=== PATIENT | male | born 1945 | race Caucasian/White ===

== ENCOUNTER 2020-03-30 10:38 | Outpatient (REF) | payer BC, MEDICARE, SELFPAY ==
[2020-03-30 14:35] LABS: Estimated Average Glucose 111 mg/dL; Hemoglobin A1C 150.6918 umol/L; Hemoglobin A1c % 5.5 %
[2020-03-30 15:01] LABS: Creatinine Urine 98.16 mg/dL; Microalbumin Urine < 5.0 mg/L
[2020-03-30 15:11] LABS: Alanine Aminotransferase 33 U/L (0-40); Albumin Level 4.8 g/dL (3.5-5.0); Alkaline Phosphatase 92 U/L (39-117); Anion Gap 14 (12-20); Aspartate Amino Transferase 29 U/L (5-37); Bilirubin Total 0.8 mg/dL (0.0-1.0); Blood Urea Nitrogen 18 mg/dL (9-16); Calcium 8.8 mg/dL (8.4-10.2); Carbon Dioxide 30 mmol/L (22-29); Chloride 102 mmol/L (96-108); Cholesterol 269 mg/dL; Estimated Glomerular Filt Rate > 60; Glucose Fasting 119 mg/dL (60-99); HDL Cholesterol 58 mg/dL; LDL Cholesterol Calculated 184 mg/dl; Potassium 4.4 mmol/l (3.3-5.1); Sodium 142 mmol/L (135-145); Total Protein 7.1 g/dL (6.5-8.0); Triglycerides 138 mg/dL
== END 2020-03-30 10:39 | disposition home or self-care (01) ==
LOC: HO.HMGCLDS 10:38
PROVIDERS: PCP Internal Medicine; Visit Provider Internal Medicine
DX: E78.2 Mixed hyperlipidemia (principal); I10 Essential (primary) hypertension; R73.9 Hyperglycemia, unspecified
CPT/HCPCS: 80053; 80061; 82043; 83036

== ENCOUNTER 2021-01-29 11:49 | Outpatient (REF) | payer MEDICARE, SELFPAY ==
--- NOTE | ~2021-01-29 | XR_ITS ---
EXAMINATION: BILATERAL SHOULDER. CLINICAL INFORMATION: Bilateral shoulder pain. COMPARISON: None TECHNIQUE: Each shoulder 3 views FINDINGS: Right shoulder: There is no visible acute fracture, dislocation or subluxation. There is loss of right AC joint space. The glenohumeral joint space is maintained normal. No acute fracture, loose bodies or bony erosive changes. The soft tissues are normal. Left shoulder: There is no acute fracture, dislocation. The AC joint and glenohumeral joint space is maintained normal except for mild inferior glenoid spine. No visible acute fracture, dislocation or lytic process seen. 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 No visible acute fracture, dislocation or subluxation seen.
--- NOTE | ~2021-01-29 | XR_ITS ---
EXAMINATION: BILATERAL SHOULDER. CLINICAL INFORMATION: Bilateral shoulder pain. COMPARISON: None TECHNIQUE: Each shoulder 3 views FINDINGS: Right shoulder: There is no visible acute fracture, dislocation or subluxation. There is loss of right AC joint space. The glenohumeral joint space is maintained normal. No acute fracture, loose bodies or bony erosive changes. The soft tissues are normal. Left shoulder: There is no acute fracture, dislocation. The AC joint and glenohumeral joint space is maintained normal except for mild inferior glenoid spine. No visible acute fracture, dislocation or lytic process seen. 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 No visible acute fracture, dislocation or subluxation seen.
== END 2021-01-29 11:50 | disposition home or self-care (01) ==
LOC: HO.HMGCX 11:49
PROVIDERS: PCP Internal Medicine; Visit Provider Nurse Practitioner Family
DX: M25.511 Pain in right shoulder (principal); M25.512 Pain in left shoulder
CPT/HCPCS: 73030

== ENCOUNTER 2022-01-25 10:30 | Outpatient (REF) | payer MEDICARE, SELFPAY ==
[2022-01-25 11:20] LABS: MANUAL DIFF FLAG NO
[2022-01-25 12:06] LABS: Basophils Absolute Auto 0.1 X10*3/uL (0.0-0.2); Basophils Percent Auto 0.8 % (0-2); Eosinophils Absolute Auto 0.3 X10*3/uL (0.0-0.4); Eosinophils Percent Auto 3.9 % (0-4); Hematocrit 46.1 % (42.0-52.0); Hemoglobin 15.6 g/dl (14.0-18.0); Imm Gran Abs Auto 0.03 X10*3/uL (0.00-0.03); Imm Gran Pct Auto 0.4 % (0.0-0.4); Lymphocytes Absolute Auto 2.4 X10*3/uL (1.2-4.9); Mean Corpuscular HGB Conc 33.8 g/dl (31.0-36.0); Mean Corpuscular Hemoglobin 30.3 pg (27.0-33.0); Mean Corpuscular Volume 89.5 fL (80.0-98.0); Mean Platelet Volume 9.3 fL (9.4-12.4); Monocytes Absolute Auto 0.5 X10*3/uL (0.1-1.2); Monocytes Percent Auto 6.3 % (2-11); Neutrophils Absolute Auto 3.9 x10*3/uL (2.0-8.3); Neutrophils Percent Auto 54.6 % (45-73); Platelet Count 353 X10*3/uL (160-400); Red Blood Count 5.15 X10*6/uL (4.60-5.80); Red Cell Distribution Width 12.1 % (11.0-16.0); White Blood Count 7.2 X10*3/uL (4.8-10.8)
[2022-01-25 12:43] LABS: Alanine Aminotransferase 18 U/L (0-40); Albumin Level 4.9 g/dL (3.5-5.0); Alkaline Phosphatase 86 U/L (39-117); Anion Gap 16 (12-20); Aspartate Amino Transferase 23 U/L (5-37); Bilirubin Total 1.1 mg/dL (0.0-1.0); Blood Urea Nitrogen 24 mg/dL (9-16); Calcium 9.7 mg/dL (8.4-10.2); Carbon Dioxide 28 mmol/L (22-29); Chloride 100 mmol/L (96-108); Cholesterol 285 mg/dL; Estimated Glomerular Filt Rate > 60; Glucose Fasting 122 mg/dL (60-99); HDL Cholesterol 56 mg/dL; LDL Cholesterol Calculated 201 mg/dl; Potassium 4.2 mmol/L (3.3-5.1); Sodium 140 mmol/L (135-145); Total Protein 7.2 g/dL (6.5-8.0); Triglycerides 143 mg/dL
[2022-01-25 14:02] LABS: PSA,Total (Free>4and<10) 0.46 ng/mL (0.00-4.00)
== END 2022-01-25 10:31 | disposition home or self-care (01) ==
LOC: HO.HMGCLDS 10:30
PROVIDERS: PCP Internal Medicine; Visit Provider Internal Medicine
DX: Z12.5 Encounter for screening for malignant neoplasm of prostate (principal); E78.5 Hyperlipidemia, unspecified; I10 Essential (primary) hypertension; K21.9 Gastro-esophageal reflux disease without esophagitis
CPT/HCPCS: 36415; 80053; 80061; 84153; 85025

== ENCOUNTER 2022-03-30 09:28 | Outpatient (REF) | payer MEDICARE, SELFPAY ==
[2022-03-30 11:28] LABS: Cholesterol 224 mg/dL; HDL Cholesterol 58 mg/dL; LDL Cholesterol Calculated 137 mg/dl; Triglycerides 146 mg/dL
== END 2022-03-30 09:29 | disposition home or self-care (01) ==
LOC: HO.HMGCLDS 09:28
PROVIDERS: PCP Internal Medicine; Visit Provider Internal Medicine
DX: E78.5 Hyperlipidemia, unspecified (principal)
CPT/HCPCS: 36415; 80061

== ENCOUNTER 2022-04-23 11:51 | Outpatient (REF) | payer MEDICARE, SELFPAY ==
--- NOTE | ~2022-04-23 | XR_ITS ---
EXAMINATION: XR CHEST CLINICAL INFORMATION: Cough. COMPARISON: None TECHNIQUE: 2 views of the chest were obtained. FINDINGS: The lungs are well-expanded and clear of acute pneumonic process. There is bilateral apical pleural thickening. Heart size and pulmonary vascularity is normal. No gross bony abnormality seen. XR/XR chest 2V IMPRESSION: Unremarkable chest examination.
[2022-04-23 12:22] LABS: Binax Internal Control QC Valid; Binax Now Covid-19 Ag Negative (Negative)
== END 2022-04-23 11:52 | disposition home or self-care (01) ==
LOC: HO.HMGCX 11:51
PROVIDERS: PCP Internal Medicine; Visit Provider Physician Assistant Medical
DX: Z20.822 Contact with and (suspected) exposure to COVID-19 (principal); R05.9 Cough, unspecified
CPT/HCPCS: 71046; 87811; C9803

== ENCOUNTER 2022-04-23 11:52 | Outpatient (REF) | payer MEDICARE, SELFPAY ==
[2022-04-23 14:56] LABS: Influenza A PCR NEGATIVE (Negative); Influenza B PCR NEGATIVE (Negative); Resp Syncy Virus RNA Qual PCR NEGATIVE (Negative); SARS COV2 PCR INHOUSE POSITIVE (Negative)
== END 2022-04-23 11:53 | disposition home or self-care (01) ==
LOC: HO.LAB 11:52
PROVIDERS: Visit Provider Physician Assistant Medical
DX: Z20.822 Contact with and (suspected) exposure to COVID-19 (principal); R05.9 Cough, unspecified
CPT/HCPCS: 0241U

== ENCOUNTER 2022-07-25 10:47 | Outpatient (REF) | payer MEDICARE, SELFPAY ==
[2022-07-25 14:13] LABS: Alanine Aminotransferase 17 U/L (0-40); Albumin Level 4.8 g/dL (3.5-5.0); Alkaline Phosphatase 89 U/L (39-117); Anion Gap 13 (12-20); Aspartate Amino Transferase 19 U/L (5-37); Bilirubin Total 1.4 mg/dL (0.0-1.0); Blood Urea Nitrogen 16 mg/dL (9-16); Calcium 9.5 mg/dL (8.4-10.2); Carbon Dioxide 30 mmol/L (22-29); Chloride 105 mmol/L (96-108); Cholesterol 230 mg/dL; Estimated Glomerular Filt Rate > 60; Glucose Fasting 124 mg/dL (60-99); HDL Cholesterol 58 mg/dL; LDL Cholesterol Calculated 148 mg/dl; Potassium 4.6 mmol/L (3.3-5.1); Sodium 143 mmol/L (135-145); Total Protein 6.8 g/dL (6.5-8.0); Triglycerides 121 mg/dL
[2022-07-25 14:19] LABS: Estimated Average Glucose 111 mg/dL; Hemoglobin A1c % 5.5 %
== END 2022-07-25 10:48 | disposition home or self-care (01) ==
LOC: HO.HMGCLDS 10:47
PROVIDERS: PCP Internal Medicine; Visit Provider Internal Medicine
DX: I10 Essential (primary) hypertension (principal); R73.9 Hyperglycemia, unspecified; E78.5 Hyperlipidemia, unspecified
CPT/HCPCS: 36415; 80053; 80061; 83036

== ENCOUNTER 2023-01-16 10:11 | Outpatient (AMB) | payer MEDICARE, SELFPAY ==
--- NOTE | 2023-01-16 10:19 | A.OFFPC_ITS ---
Vital Signs 01/16/23 10:25 Height 5 ft 7 in Weight 133 lb BMI 20.8 BP 108/66 Blood Pressure Location Lt brachial Position Sitting Pulse 71 Pulse Source Pulse Oximeter Pulse Oximetry (%) 95 Oxygen Delivery Method Room Air Intake Visit Reasons: 6m follow up HTN Intake Note: Pt is here today for 6 months follow up visit. Allergies amoxicillin Allergy (Unknown, Verified 01/16/23 10:27) Unknown Medication List - Last Reconciled 01/16/23 by Evie Syed MD lisinopril 10 mg PO DAILY pantoprazole 40 mg PO DAILY pravastatin 40 mg PO DAILY Tobacco use date assessed: 01/16/23 Fall risk assessment: No Falls in past year Last assessed Fall Risk: 01/16/23 Dental Screening Dental Screen Date: 01/16/23 Did you have a dental visit in the last 12 months?: Yes Did you have a dental problem in the last 6 months where you did not have access to dental care?: No Was dental information given to patient?: Patient has dentist HPI 6m follow up HTN HPI Details Pt presents for f/u HTN,hyperlipid, stable on meds PFSH Medical History GERD (gastroesophageal reflux disease) HTN (hypertension) Surgical History History of esophagogastroduodenoscopy (EGD) Family History Father Prostate cancer Lung cancer Mother No problems noted. Social History Housing: House Patient Tobacco Use Status: Never used Tobacco e-Cigarette/Vaping Use: Never Used Current occupational status: retired Cognitive needs: No Hearing needs: No Vision needs: Yes Questionnaire Thrive Questionnaire Date Thrive assessed: 07/25/22 AUDIT C Alcohol Use Questionnaire (AUDIT-C) 1. How often do you have a drink containing alcohol?: Never 3. How often do you have six or more drinks on one occasion?: Never Total Score: 0 JAMES-7 AMB Questionnaire JAMES-7 Date JAMES - 7 assessed: 07/25/22 Source: Developed by Drs. Dheeraj Hurley, Rasheeda Shailesh Owen and colleagues, with an educational chelly from [employer]. Review of Systems Const All systems reviewed & are unremarkable except as noted in HPI and below Reports no additional complaints Eyes Reports no additional complaints ENT Reports no additional complaints Card Reports no additional complaints Resp Reports no additional complaints GI Reports no additional complaints Reports no additional complaints Physical exam (Primary Care) Vital Signs: Last Vital Signs Pulse 71 01/16/23 10:25 BP 108/66 01/16/23 10:25 Pulse Ox 95 01/16/23 10:25 Oxygen Delivery Method Room Air 01/16/23 10:25 BMI result Body Mass Index 20.8 Tobacco/Smoking Status: Tobacco use Status Tobacco use date assessed 01/16/23 01/16/23 10:29 Patient Tobacco Use Status Never used Tobacco 01/16/23 10:20 e-Cigarette/Vaping Use Never Used 01/16/23 10:20 Thrive Assessment: Date of Thrive Assessment Date Thrive assessed 07/25/22 01/16/23 10:20 Const General: no acute distress HENMT Face and sinus: Yes normal facial exam Resp Effort & Inspection: normal respiratory effort Auscultation: clear to auscultation bilaterally Cardio Rhythm: regular rhythm Heart sounds: S1 normal heart sound present and S2 normal heart sound present Assessment and Plan Assessment & Plan (1) Hyperglycemia: Code(s): R73.9 - Hyperglycemia, unspecified Plan: ADA diet, exercise, check A1C today and in 6 months (2) GERD (gastroesophageal reflux disease): Code(s): K21.9 - Gastro-esophageal reflux disease without esophagitis Plan: cont PPI (3) HTN (hypertension): Comment: <130/80 Code(s): I10 - Essential (primary) hypertension Plan: cont med (4) Hyperlipemia: Code(s): E78.5 - Hyperlipidemia, unspecified Plan: cont statin Orders: Orders Hemoglobin A1c 6 Months E78.5 - Hyperlipidemia, unspecified, I10 - Essential (primary) hypertension, N40.0 - Benign prostatic hyperplasia without lower urinary tract symptoms, R73.9 - Hyperglycemia, unspecified Lipid Panel 6 Months E78.5 - Hyperlipidemia, unspecified, I10 - Essential (primary) hypertension, N40.0 - Benign prostatic hyperplasia without lower ur inary tract symptoms, R73.9 - Hyperglycemia, unspecified PSA,Total (Free>4and<10) Today E78.5 - Hyperlipidemia, unspecified, I10 - Essential (primary) hypertension, N40.0 - Benign prostatic hyperplasia without lower urinary tract symptoms, R73.9 - Hyperglycemia, unspecified Comprehensive [place]. Panel Fast Today E78.5 - Hyperlipidemia, unspecified, I10 - Essential (primary) hypertension, K21.9 - Gastro-esophageal reflux disease without esophagitis, R73.9 - Hyperglycemia, unspecified Complete Blood Count Auto Diff Today E78.5 - Hyperlipidemia, unspecified, I10 - Essential (primary) hypertension, K21.9 - Gastro-esophageal reflux disease without esophagitis, R73.9 - Hyperglycemia, unspecified Lipid Panel Today E78.5 - Hyperlipidemia, unspecified, I10 - Essential (primary) hypertension, K21.9 - Gastro-esophageal reflux disease without esophagitis, R73.9 - Hyperglycemia, unspecified Hemoglobin A1c Today E78.5 - Hyperlipidemia, unspecified, I10 - Essential (primary) hypertension, K21.9 - Gastro-esophageal reflux disease without esophagitis, R73.9 - Hyperglycemia, unspecified Comprehensive [place]. Panel Fast 6 Months E78.5 - Hyperlipidemia, unspecified, I10 - Essential (primary) hypertension, N40.0 - Benign prostatic hyperplasia without lower urinary tract symptoms, R73.9 - Hyperglycemia, unspecified Referrals Cologuard Test Z12.11 - Encounter for screening for malignant neoplasm of colon, Z12.12 - Encounter for screening for malignant neoplasm of rectum Medications: Refilled pravastatin 40 mg PO DAILY 90 tabs 3RF lisinopril 10 mg PO DAILY 90 tabs 3RF pantoprazole 40 mg PO DAILY 90 tabs 3RF Coding Level of Care Code Est Pt Level 4 (13570) Diagnoses Hyperglycemia R73.9 GERD (gastroesophageal reflux disease) K21.9 HTN (hypertension) I10 Hyperlipemia E78.5
[2023-01-16 10:25] VITALS: BP 108/66; PULSE 71; O2SAT 95; BMI 20.8
== END 2023-01-16 11:10 | disposition home or self-care (01) ==
PROVIDERS: Visit Provider Internal Medicine
DX: R73.9 Hyperglycemia, unspecified (principal); K21.9 Gastro-esophageal reflux disease without esophagitis; I10 Essential (primary) hypertension; E78.5 Hyperlipidemia, unspecified
CPT/HCPCS: 99214

== ENCOUNTER 2023-01-16 11:05 | Outpatient (REF) | payer MEDICARE, SELFPAY ==
[2023-01-16 13:25] LABS: MANUAL DIFF FLAG NO
[2023-01-16 13:42] LABS: Basophils Absolute Auto 0.1 X10*3/uL (0.0-0.2); Basophils Percent Auto 0.9 % (0-2); Eosinophils Absolute Auto 0.1 X10*3/uL (0.0-0.4); Eosinophils Percent Auto 2.4 % (0-4); Hematocrit 46.3 % (42.0-52.0); Hemoglobin 15.6 g/dl (14.0-18.0); Imm Gran Abs Auto 0.02 X10*3/uL (0.00-0.03); Imm Gran Pct Auto 0.4 % (0.0-0.4); Lymphocytes Absolute Auto 1.5 X10*3/uL (1.2-4.9); Lymphocytes Percent Auto 27.6 % (20-40); Mean Corpuscular HGB Conc 33.7 g/dl (31.0-36.0); Mean Corpuscular Hemoglobin 30.6 pg (27.0-33.0); Mean Corpuscular Volume 90.8 fL (80.0-98.0); Mean Platelet Volume 9.4 fL (9.4-12.4); Monocytes Absolute Auto 0.3 X10*3/uL (0.1-1.2); Monocytes Percent Auto 6.3 % (2-11); Neutrophils Absolute Auto 3.4 x10*3/uL (2.0-8.3); Neutrophils Percent Auto 62.4 % (45-73); Platelet Count 290 X10*3/uL (160-400); White Blood Count 5.4 X10*3/uL (4.8-10.8)
[2023-01-16 14:02] LABS: Estimated Average Glucose 111 mg/dL; Hemoglobin A1c % 5.5 % (<6.0)
[2023-01-16 14:13] LABS: PSA,Total (Free>4and<10) 0.52 ng/mL (0.00-4.00)
[2023-01-16 14:27] LABS: Alanine Aminotransferase 17 U/L (0-40); Albumin Level 4.7 g/dL (3.5-5.0); Alkaline Phosphatase 79 U/L (39-117); Anion Gap 13 (12-20); Aspartate Amino Transferase 20 U/L (5-37); Bilirubin Total 0.9 mg/dL (0.0-1.0); Blood Urea Nitrogen 18 mg/dL (9-16); Calcium 9.9 mg/dL (8.4-10.2); Carbon Dioxide 29 mmol/L (22-29); Chloride 104 mmol/L (96-108); Cholesterol 205 mg/dL (<200); Estimated Glomerular Filt Rate > 60; Glucose Fasting 119 mg/dL (60-99); HDL Cholesterol 57 mg/dL (>40); LDL Cholesterol Calculated 126 mg/dL (<100); Potassium 4.4 mmol/L (3.3-5.1); Sodium 142 mmol/L (135-145); Triglycerides 114 mg/dL (<150)
== END 2023-01-16 11:06 | disposition home or self-care (01) ==
LOC: HO.HMGCLDS 11:05
PROVIDERS: PCP Internal Medicine; Visit Provider Internal Medicine
DX: Z12.5 Encounter for screening for malignant neoplasm of prostate (principal); R73.9 Hyperglycemia, unspecified; K21.9 Gastro-esophageal reflux disease without esophagitis; E78.5 Hyperlipidemia, unspecified; N40.0 Benign prostatic hyperplasia without lower urinary tract symptoms; I10 Essential (primary) hypertension
CPT/HCPCS: 36415; 80053; 80061; 83036; 84153; 85025

== ENCOUNTER 2023-04-26 10:05 | Outpatient (AMB) | payer MEDICARE, SELFPAY ==
[2023-04-26 11:20] VITALS: BP 124/70; PULSE 96; TEMP 36.6; O2SAT 98; BMI 21.8
--- NOTE | 2023-04-26 11:20 | MHC.OFFWIV ---
Intake Vital Signs 04/26/23 11:20 Height 5 ft 7 in Weight 139 lb BMI 21.8 BP 124/70 Blood Pressure Location Lt brachial Position Sitting Pulse 96 Pulse Source Pulse Oximeter Temp 97.8 F Temp Source Temporal Artery Scan Pulse Oximetry (%) 98 Oxygen Delivery Method Room Air Intake Visit Reasons: EP, cough, congestion, sore throat (masked) Intake Note: pt is here today for cough congestion sore throat started 2 weeks Patient Tobacco Use Status: Never used Tobacco Allergies amoxicillin Allergy (Unknown, Verified 04/26/23 11:28) Unknown Do you need a note to return to daycare/school/sports/work: No HPI HPI Comments History of Present Illness Details Austin schwartz a 78yo M who presents to office with cold He said symptoms x 2 weeks R ear pain, R eye crusting in am, sinus pressure and cough No relief with OTC medicine No fever or chills Denies CP or SOB States only cough medicine which helps is the one with codieine; last script april 2022 [facility] Medical History GERD (gastroesophageal reflux disease) HTN (hypertension) Surgical History History of esophagogastroduodenoscopy (EGD) Family History Father Prostate cancer Lung cancer Mother No problems noted. Social History Housing: House Patient Tobacco Use Status: Never used Tobacco e-Cigarette/Vaping Use: Never Used Current occupational status: retired Cognitive needs: No Hearing needs: No Vision needs: Yes Review of Systems Const Denies body aches, Denies chills, Reports fatigue, Denies fever(s) and Reports headache(s) Eyes Denies blurry vision ENT Reports otalgia, Reports headache(s), Reports nasal congestion, Reports nasal discharge, Reports sinus pain, Reports sinus pressure, Denies sore throat and Denies throat swelling Card Denies chest pain and Denies dyspnea Resp Reports chest congestion, Reports cough and Denies dyspnea GI Denies abdominal pain Neuro Reports headache(s) Endo Reports fatigue Aller/Immun Denies throat swelling Physical Exam Vital Signs: Last Vital Signs Temp 97.8 F 04/26/23 11:20 Pulse 96 04/26/23 11:20 BP 124/70 04/26/23 11:20 Pulse Ox 98 04/26/23 11:20 Oxygen Delivery Method Room Air 04/26/23 11:20 BMI result Body Mass Index 21.8 General: Non-toxic, NAD. Speaking full sentences. Skin: Warm dry throughout Eye: EOMI, PERRL. + conjunctival erythema bilaterally. No drainage or crusting bilaterally. No FB under eyelid R side. No periorbital edema or erythema HENT: Airway patent. Uvula midline. No pharyngeal erythema or edema. No GRADUATE ASSISTANT. Bilateral canals clear. R TM + erythema without bulging or perforation. L TM non-erythematous, non-bulging. No TM perforation or hemotympanum noted. + sinus tenderness maxillary region. Respiratory: CTA bilaterally. No wheezes, rales or rhonchi Cardiac: RRR. No murmur MSK: Full ROM extremities. Neurology: A/O. No aphasia or facial droop. Gait without abnormality Psych: Good mood and affect Results AMB Rapid Strep AMB Rapid Strep Negative Last Edit by Kelin Rendon CMA on 04/26/23 11:37 Assessment & Plan Assessment & Plan (1) Cough: Code(s): R05.9 - Cough, unspecified Qualifiers: Cough type: acute Qualified Code(s): R05.1 - Acute cough Plan: see below (2) Sinusitis: Code(s): J32.9 - Chronic sinusitis, unspecified Qualifiers: Sinusitis location: maxillary Chronicity: acute Recurrence: non-recurrent Qualified Code(s): J01.00 - Acute maxillary sinusitis, unspecified Plan: Patient seen and evaluated. Non-toxic appearing Lungs CTA Sinus x 2 weeks Strep negative Doxy to pharmacy to take with food Cough medicine; + lethargy, no alcohol or driving F/U with PCP Patient gave verbal understanding and had no additional questions or concerns at time of discharge All questions answered Orders: Orders AMB Rapid Strep Screen Today Z13.9 - Encounter for screening, unspecified Medications: New doxycycline hyclate 100 mg PO BID 14 caps 0RF codeine-guaifenesin 10-100 mg/5 mL 5 mL PO Q6H PRN 118 mL 0RF cough R05.9 - Cough, unspecified Coding Level of Care Code Est Pt Level 3 (63973) Diagnoses Acute cough R05.1 Cough type: acute Acute non-recurrent maxillary sinusitis J01.00 Sinusitis location: maxillary Chronicity: acute Recurrence: non-recurrent
== END 2023-04-26 11:55 | disposition home or self-care (01) ==
PROVIDERS: PCP Internal Medicine; Visit Provider Physician Assistant
DX: R05.1 Acute cough (principal); J01.00 Acute maxillary sinusitis, unspecified; J02.9 Acute pharyngitis, unspecified
CPT/HCPCS: 87880; 99213

== ENCOUNTER 2023-07-25 10:05 | Outpatient (REF) | payer MEDICARE, SELFPAY ==
[2023-07-25 13:49] LABS: Estimated Average Glucose 114 mg/dL; Hemoglobin A1c % 5.6 % (<6.0)
[2023-07-25 14:04] LABS: Alanine Aminotransferase 19 U/L (0-40); Albumin Level 4.3 g/dL (3.5-5.0); Alkaline Phosphatase 81 U/L (39-117); Anion Gap 12 (12-20); Aspartate Amino Transferase 22 U/L (5-37); Blood Urea Nitrogen 14 mg/dL (9-16); Calcium 9.1 mg/dL (8.4-10.2); Carbon Dioxide 27 mmol/L (22-29); Chloride 108 mmol/L (96-108); Cholesterol 202 mg/dL (<200); Estimated Glomerular Filt Rate > 60; Glucose Fasting 118 mg/dL (60-99); HDL Cholesterol 56 mg/dL (>40); LDL Cholesterol Calculated 126 mg/dL (<100); Sodium 143 mmol/L (135-145); Total Protein 6.7 g/dL (6.5-8.0); Triglycerides 101 mg/dL (<150)
== END 2023-07-25 10:06 | disposition home or self-care (01) ==
LOC: HO.HMGCLDS 10:05
PROVIDERS: PCP Internal Medicine; Visit Provider Internal Medicine
DX: R73.9 Hyperglycemia, unspecified (principal); I10 Essential (primary) hypertension; E78.5 Hyperlipidemia, unspecified; N40.0 Benign prostatic hyperplasia without lower urinary tract symptoms
CPT/HCPCS: 36415; 80053; 80061; 83036

== ENCOUNTER 2023-07-28 11:35 | Outpatient (AMB) | payer MEDICARE, SELFPAY ==
[2023-07-28 11:39] VITALS: BP 128/66; PULSE 81; O2SAT 96; BMI 21.0
--- NOTE | 2023-07-28 11:39 | A.OFFPC_ITS ---
Vital Signs 07/28/23 11:39 Height 5 ft 7 in Weight 134 lb BMI 21.0 BP 128/66 Blood Pressure Location Rt brachial Position Sitting Pulse 81 Pulse Source Pulse Oximeter Pulse Oximetry (%) 96 Oxygen Delivery Method Room Air Intake Visit Reasons: Annual PE Intake Note: Pt is here today for PE. Allergies amoxicillin Allergy (Unknown, Verified 07/28/23 11:40) Unknown Medication List - Last Reconciled 07/28/23 by Evie Syed MD lisinopril 10 mg PO DAILY pantoprazole 40 mg PO DAILY pravastatin 40 mg PO DAILY Tobacco use date assessed: 07/28/23 Fall risk assessment: No Falls in past year Last assessed Fall Risk: 07/28/23 Dental Screening Dental Screen Date: 07/28/23 Did you have a dental visit in the last 12 months?: Yes Did you have a dental problem in the last 6 months where you did not have access to dental care?: No Was dental information given to patient?: Patient has dentist HPI Annual PE HPI Details Pt presents for PE. [facility] Medical History GERD (gastroesophageal reflux disease) HTN (hypertension) Surgical History History of esophagogastroduodenoscopy (EGD) Family History Father Prostate cancer Lung cancer Mother No problems noted. Social History Housing: House Patient Tobacco Use Status: Never used Tobacco e-Cigarette/Vaping Use: Never Used service: Yes Current occupational status: retired Cognitive needs: No Hearing needs: No Vision needs: Yes Questionnaire PHQ-9 Over the last 2 weeks, how often have you been bothered by any of the following problems? 1. Little interest or pleasure in doing things: not at all 2. Feeling down, depressed, or hopeless: several days 3. Trouble falling or staying asleep, or sleeping too much: not at all 4. Feeling tired or having little energy: several days 5. Poor appetite or overeating: not at all 6. Feeling bad about yourself - or that you are a failure or have let yourself or your family down: not at all 7. Trouble concentrating on things, such as reading the newspaper or watching television: not at all 8. Moving or speaking so slowly that other people could have noticed. Or the opposite - being so fidgety or restless that you have been moving around a lot more than usual: not at all 9. Thoughts that you would be better off or of hurting yourself in some way: not at all Total score: 2 Depression Screening Interpretation: Negative Depression Screening Done: Yes Source: Developed by Drs. Dheeraj Hurley, Rasheeda Sosa, Shailesh Puentes and colleagues, with an educational chelly from [employer]. Thrive Questionnaire Date Thrive assessed: 07/28/23 I am a: Patient What is your living situation today?: I have a steady place to live Within the past 12 months, did the food you bought not last and you didn't have the money to get more?: Never true Within the past 12 months, did you worry whether your food would run out before you got money to buy more?: Never true Do you have trouble paying for medicines?: No Do you have trouble getting transportation to medical appointments?: No Do you have trouble paying your heating and electricity bill?: No Do you have trouble taking care of your child, family member or friend?: No Do you have trouble with day-to-day activities such as bathing, preparing meals, shopping, managing finances, etc.?: No Are you currently unemployed and looking for a job?: No Are you interested in more education?: No THRIVE Score: 0 AUDIT C Alcohol Use Questionnaire (AUDIT-C) 1. How often do you have a drink containing alcohol?: Never 3. How often do you have six or more drinks on one occasion?: Never Total Score: 0 JAMES-7 AMB Questionnaire JAMES-7 Date JAMES - 7 assessed: 07/25/22 Feeling nervous, anxious, or on edge: 0 = Not at all Not being able to stop or control worryin = Not at all Worrying too much about different things: 0 = Not at all Trouble relaxin = Not at all Being so restless that it is hard to sit still: 0 = Not at all Becoming easily annoyed or irritable: 0 = Not at all Feeling afraid as if something awful might happen: 0 = Not at all Total JAMES-7 score (0-4 normal; 5-9 mild; 10-14 moderate; 15-21 severe): 0 Source: Developed by Drs. Dheeraj Hurley, Rasheeda Sosa, Shailesh Puentes and colleagues, with an educational chelly from [employer]. Review of Systems Const All systems reviewed & are unremarkable except as noted in HPI and below Reports no additional complaints Eyes Reports no additional complaints ENT Reports no additional complaints Card Reports no additional complaints Resp Reports no additional complaints GI Reports no additional complaints Reports no additional complaints Musc Reports no additional complaints Physical exam (Primary Care) Vital Signs: Last Vital Signs Pulse 81 07/28/23 11:39 BP 128/66 07/28/23 11:39 Pulse Ox 96 07/28/23 11:39 Oxygen Delivery Method Room Air 07/28/23 11:39 BMI result Body Mass Index 21.0 Tobacco/Smoking Status: Tobacco use Status Tobacco use date assessed 07/28/23 07/28/23 11:44 Patient Tobacco Use Status Never used Tobacco 07/28/23 11:44 e-Cigarette/Vaping Use Never Used 07/28/23 11:44 PHQ-9: PHQ-9 Score PHQ-9: Total score 2 07/28/23 11:44 Depression Screening Interpretation: Negative Thrive Assessment: Date of Thrive Assessment Date Thrive assessed 07/28/23 07/28/23 11:44 Const General: no acute distress HENMT Head: Yes normal to inspection Ears: hearing grossly normal bilaterally Face and sinus: Yes normal facial exam Throat: Yes posterior oropharynx normal Eyes General: appearance normal, both eyes and all related structures Neck Neck: Yes supple Resp Effort & Inspection: normal respiratory effort Auscultation: clear to auscultation bilaterally Cardio Rhythm: regular rhythm Heart sounds: S1 normal heart sound present and S2 normal heart sound present GI Inspection: Yes normal to inspection Palpation (GI): Soft to palpation Percussion: Yes normal to percussion Auscultation: normal bowel sounds Assessment and Plan Assessment & Plan (1) Annual physical exam: Code(s): Z00.00 - Encounter for general adult medical examination without abnormal findings Plan: Well-balanced diet regular physical activity discussed with the patient. (2) HTN (hypertension): Comment: <130/80 Code(s): I10 - Essential (primary) hypertension Plan: Continue lisinopril (3) Hyperlipemia: Code(s): E78.5 - Hyperlipidemia, unspecified Plan: Continue statin, return in 1 year for physical with a fasting labs before Orders: Orders Lipid Panel 1 Year E78.5 - Hyperlipidemia, unspecified, I10 - Essential (primary) hypertension, Z00.00 - Encounter for general adult medical examination without abnormal findings UA w Microscopic 1 Year E78.5 - Hyperlipidemia, unspecified, I10 - Essential (primary) hypertension, Z00.00 - Encounter for general adult medical examination without abnormal findings Comprehensive [place]. Panel Fast 1 Year E78.5 - Hyperlipidemia, unspecified, I10 - Essential (primary) hypertension, Z00.00 - Encounter for general adult medical examination without abnormal findings Complete Blood Count Auto Diff 1 Year E78.5 - Hyperlipidemia, unspecified, I10 - Essential (primary) hypertension, Z00.00 - Encounter for general adult medical examination without abnormal findings PSA,Total (Free>4and<10) 1 Year E78.5 - Hyperlipidemia, unspecified, I10 - Essential (primary) hypertension, Z00.00 - Encounter for general adult medical examination without abnormal findings Hemoglobin A1c 1 Year E78.5 - Hyperlipidemia, unspecified, I10 - Essential (primary) hypertension, Z00.00 - Encounter for general adult medical examination without abnormal findings Coding Level of Care Code Est Pt Prev Care >65y(03688) Diagnoses Annual physical exam Z00.00 HTN (hypertension) I10 Hyperlipemia E78.5
== END 2023-07-28 13:13 | disposition home or self-care (01) ==
PROVIDERS: PCP Internal Medicine; Visit Provider Internal Medicine
DX: Z00.00 Encounter for general adult medical examination without abnormal findings (principal); I10 Essential (primary) hypertension; E78.5 Hyperlipidemia, unspecified
CPT/HCPCS: 99397

== ENCOUNTER 2024-08-08 09:59 | Outpatient (REF) | payer MEDICARE, SELFPAY ==
--- OUTSIDE RECORDS SUMMARY | 2024-08-08 11:22 | XMS_ITS | Clinical Summary ---
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 8 Active aspirin 81 mg EC tablet Take 81 mg by mouth daily. Active omeprazole OTC (PriLOSEC OTC) 20 mg EC tablet Take 1 Tab by mouth daily. 6 Active Active Problems Problem Noted Date Diagnosed Date Prediabetes 08/29/2017 Hypertension 08/22/2017 Hyperlipidemia 09/05/2015 Gastroesophageal reflux disease without esophagi tis 09/05/2015 Family History Medical History Relation Name Comments Lung cancer Father 92 Other cancer Sister 1 lung and throat cancer 65-smoker Relation Name Status Comments Father 92 Mother 90 Sister 1 Sister 2 Social History Tobacco Use Types Packs/Day Years Used Date Smoking Tobacco: Never Smokeless Tobacco: Never Alcohol Use Standard Drinks/Week Comments Not Asked 0 (1 standard drink = 0.6 oz pur e alcohol) Sex and Gender Information Value Date Recorded Sex Assigned at Not on file Legal Sex Male 5:36 PM EST Gender Identity Not on file Sexual Orientation Not on file Obstetrics History Plan of Treatment Health Maintenance Due Date Last Done Comments DTaP,Tdap,and Td Vaccines (1 - Tdap) 1966 Pneumococcal Vaccine: 50+ Ye ars (1 of 1 - PCV) 1997 Zoster Vaccines (1 of 2) 1997 RSV Immunization Adult Patie nts (1 - 1-dose 75+ series) 2022 COVID-19 Vaccine (2023-2 5 season) 2023 Cholesterol Screening (Lipid Panel) 04/06/2024 10/29/2018 Colorectal Cancer Screening: Stool Based Tests (FOBT/FIT) 04/06/2024 Depression Screening 04/06/2024 Falls Risk Assessment 04/06/2024 Hypertension/CHF/CAD Annual BMP Blood Test 04/06/2024 10/29/2018 Social Influencers of Health Screening 04/06/2024 Influenza Vaccine (Season Ended) 2024 Hepatitis C Screening Completed 10/29/2018 HIB Vaccines Aged Out No longer eligi ble based on patient's age to complete this topic HPV Vaccines Aged Out No longer eligi ble based on patient's age to complete this topic Hepatitis A Vaccines Aged Out No long er eligible based on patient's age to complete this topic Hepatitis B Vaccines Aged Out No long er eligible based on patient's age to complete this topic IPV Vaccines Aged Out No longer eligi ble based on patient's age to complete this topic MMR Vaccines Aged Out No longer eligi ble based on patient's age to complete this topic Meningococcal ACWY Vaccine Aged Out N o longer eligible based on patient's age to complete this topic Meningococcal B Vaccine Aged Out No l onger eligible based on patient's age to complete this topic RSV Immunization Patients Un shawn 20 months Aged Out No longer eligible b ased on patient's age to complete this topic Varicella Vaccines Aged Out No longer eligible based on patient's age to complete this topic Procedures Procedure Name Priority Date/Time Associated Diagnosis Comments HEPATITIS C SCREENING Routine 10/29/2018 ANNUAL BMP BLOOD TEST Routine 10/29/2018 LIPID PANEL Routine 10/29/2018 from Last 3 Months or Most Recently Relevant to Health Maintenance Results * Annual BMP Blood Test (10/29/2018) Annual BMP Blood Test Abstracted Historical Provider MD HEALTH MAINTENANCE Final Result * Hepatitis C Screening (10/29/2018) Hepatitis C Screening Abstracted Historical Provider HEALTH MAINTENANCE Final Result * (ABNORMAL) Lipid panel (10/29/2018) LDL/HDL Ratio 4 0 - 4 Triglycerides 180(A) 0 - 150 mg/dL Cholesterol 233(A) 0 - 200 mg/dL HDL 53 >=40 mg/dL LDL Cholesterol 144(A) 0 - 100 mg/dL Blood Venous blood specimen / Unknown Historical Provider LAB BLOOD ORDERABLES Lilian l Result from Last 3 Months or Most Recently Relevant to Health Maintenance 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
--- OUTSIDE RECORDS SUMMARY | 2024-08-08 11:22 | XMS_ITS | Clinical Summary ---
Author Organization [facility] Address [address] [place] [address] Care Team Providers Care White Work Cleaner Name Role Phone Tanesha Brown MD Primary Care Provider [phone] Allergies No known active allergies Medications Medication Sig Dispensed Refills Start Date End Date Status lisinopril (PRINIVIL,ZESTRIL) tablet 10 mg Take 10 mg by mouth daily. 0 Active Active Problems No known active problems Family History Medical History Relation Name Comments Cancer Father Oni Cancer Sister Beth Relation Name Status Comments Father Oni Sister Beth Social History Tobacco Use Types Packs/Day Years Used Date Smoking Tobacco: Never Smokeless Tobacco: Never Alcohol Use Standard Drinks/Week Comments No 0 (1 standard drink = 0.6 oz pur e alcohol) Sex and Gender Information Value Date Recorded Sex Assigned at Not on file Gender Identity Not on file Sexual Orientation Not on file Last Filed Vital Signs Vital Sign Reading Time Taken Comments Blood Pressure 140/74 01/19/2018 10:09 AM EDT Pulse 92 01/19/2018 10:09 AM EDT Temperature 36.9 ??C (98.5 ??F) 01/19/2018 10:09 AM E DT Respiratory Rate - - Oxygen Saturation - - Inhaled Oxygen Concentration - - Weight 60.1 kg (132 lb 9.6 oz) 01/19/2018 10:09 AM EDT Height 170.2 cm (5' 7 ) 01/19/2018 10:09 AM EDT Body Mass Index 20.77 01/19/2018 10:09 AM EDT Plan of Treatment Health Maintenance Due Date Last Done Comments Hepatitis C Screening 1945 COVID-19 Vaccine (#1) 1945 Depression Screening 1959 Preventative Health Evaluation 1965 DTap / Tdap / Td (1 - Tdap) 1966 Shingrix-Zoster Vaccine (1 of 2) 1997 Fall Risk Assessment 02/11/2012 Pneumococcal Vaccine (1 of 1 - PCV) 02/11/2012 RSV Adult > 60+ Yrs or Pregn ant (1 - 1-dose 75+ series) 2022 Influenza Vaccine (#1) 2023 Hepatitis B Vaccines Aged Out No long er eligible based on patient's age to complete this topic RSV Ped < 20 months Aged Out No longe r eligible based on patient's age to complete this topic Care Teams White Work Cleaner Relationship Specialty Start Date End Date Tanesha Brown MD PCP - General Internal Medicine 11/21/17
[2024-08-08 13:05] LABS: MANUAL DIFF FLAG NO
[2024-08-08 13:15] LABS: Appearance Urine Turbid; Color Urine Yellow; Glucose Urine UA Negative (Negative); Leukocyte Esterase Urine Trace (Negative); Nitrite Urine Negative (Negative); UMIC TRIGGER UA YES; Urine Blood Negative (Negative); Urine Ketones Negative (Negative); Urine Protein Negative (Neg-Trace)
[2024-08-08 13:18] LABS: Basophils Absolute Auto 0.1 X10*3/uL (0.0-0.2); Basophils Percent Auto 0.7 % (0-2); Eosinophils Absolute Auto 0.2 X10*3/uL (0.0-0.4); Eosinophils Percent Auto 3.2 % (0-4); Hematocrit 45.3 % (42.0-52.0); Hemoglobin 15.2 g/dl (14.0-18.0); Imm Gran Abs Auto 0.02 X10*3/uL (0.00-0.03); Imm Gran Pct Auto 0.3 % (0.0-0.4); Lymphocytes Absolute Auto 2.1 X10*3/uL (1.2-4.9); Lymphocytes Percent Auto 29.5 % (20-40); Mean Corpuscular HGB Conc 33.6 g/dl (31.0-36.0); Mean Corpuscular Hemoglobin 30.5 pg (27.0-33.0); Mean Corpuscular Volume 90.8 fL (80.0-98.0); Mean Platelet Volume 9.5 fL (9.4-12.4); Monocytes Absolute Auto 0.4 X10*3/uL (0.1-1.2); Monocytes Percent Auto 5.2 % (2-11); Neutrophils Absolute Auto 4.3 x10*3/uL (2.0-8.3); Neutrophils Percent Auto 61.1 % (45-73); Platelet Count 299 X10*3/uL (160-400); Red Blood Count 4.99 X10*6/uL (4.60-5.80); Red Cell Distribution Width 12.6 % (11.0-16.0)
[2024-08-08 13:23] LABS: Estimated Average Glucose 117 mg/dL; Hemoglobin A1C 153.9866 umol/L; Hemoglobin A1c % 5.7 % (<6.0); Total Hemoglobin (HGBA1C) 4013.3634 umol/L
[2024-08-08 13:24] LABS: Bacteria Urine None Seen (None Seen); Hyaline Casts Urine 0-2 /LPF (0-2); RBC Urine 0-2 /HPF (0-2); Squamous Epithelial Cell Urine 0-2 /HPF (0-2); WBC Urine 0-5 /HPF (0-5)
[2024-08-08 13:33] LABS: Alanine Aminotransferase 22 U/L (0-40); Albumin Level 4.4 g/dL (3.5-5.0); Alkaline Phosphatase 81 U/L (39-117); Anion Gap 11 (12-20); Aspartate Amino Transferase 29 U/L (5-37); Bilirubin Total 1.2 mg/dL (0.0-1.0); Blood Urea Nitrogen 17 mg/dL (9-16); Calcium 9.3 mg/dL (8.4-10.2); Carbon Dioxide 28 mmol/L (22-29); Chloride 105 mmol/L (96-108); Cholesterol 201 mg/dL (<200); Estimated Glomerular Filt Rate > 60; Glucose Fasting 119 mg/dL (60-99); HDL Cholesterol 61 mg/dL (>40); LDL Cholesterol Calculated 121 mg/dL (<100); Potassium 3.9 mmol/L (3.3-5.1); Sodium 140 mmol/L (135-145); Total Protein 6.6 g/dL (6.5-8.0); Triglycerides 97 mg/dL (<150)
[2024-08-08 13:48] LABS: PSA,Total (Free>4and<10) 0.51 ng/mL (0.00-4.00)
== END 2024-08-08 10:00 | disposition home or self-care (01) ==
LOC: HO.HMGCLDS 09:59
PROVIDERS: PCP Internal Medicine; Visit Provider Internal Medicine
DX: Z00.00 Encounter for general adult medical examination without abnormal findings (principal); I10 Essential (primary) hypertension; E78.5 Hyperlipidemia, unspecified; Z12.5 Encounter for screening for malignant neoplasm of prostate; Z13.1 Encounter for screening for diabetes mellitus
CPT/HCPCS: 36415; 80053; 80061; 81001; 83036; 84153; 85025

== ENCOUNTER 2024-08-13 11:53 | Outpatient (AMB) | payer MEDICARE, SELFPAY ==
[2024-08-13 11:55] VITALS: BP 126/76; PULSE 68; RESP 18; TEMP 36.6; O2SAT 98; BMI 21.0
--- NOTE | 2024-08-13 11:55 | A.OFFPC_ITS ---
Vital Signs 08/13/24 11:55 Height 5 ft 7 in Weight 134 lb BMI 21.0 BP 126/76 Blood Pressure Location Lt brachial Position Sitting Respiration 18 Pulse 68 Pulse Source Pulse Oximeter Temp 97.9 F Temp Source Oral Pulse Oximetry (%) 98 Oxygen Delivery Method Room Air Intake Visit Reasons: Annual PE (>40) - see comments Intake Note: Pt is here today for PE. Allergies amoxicillin Allergy (Unknown, Verified 08/13/24 11:56) Unknown Medication List - Last Reconciled 08/13/24 by Evie Syed MD lisinopril 10 mg PO DAILY pantoprazole 40 mg PO DAILY pravastatin 40 mg PO DAILY Tobacco use date assessed: 08/13/24 Fall risk assessment: No Falls in past year Last assessed Fall Risk: 08/13/24 Dental Screening Dental Screen Date: 08/13/24 Did you have a dental visit in the last 12 months?: Yes Did you have a dental problem in the last 6 months where you did not have access to dental care?: No Was dental information given to patient?: Patient has dentist HPI Annual PE (>40) - see comments HPI Details Pt presents for PE. Patient complains of chronic lower back pain and stiffness for many years. He was evaluated by neurosurgeon and had chiropractor treatment with only temporary relief. he denies pain radiating to lower extremities, weakness or numbness in extremities, change in bowel bladder function. He reports feeling better after walking and doing some yard work [facility] Medical History GERD (gastroesophageal reflux disease) HTN (hypertension) Surgical History History of esophagogastroduodenoscopy (EGD) Family History Father Prostate cancer Lung cancer Mother No problems noted. Social History Housing: House Patient Tobacco Use Status: Never used Tobacco e-Cigarette/Vaping Use: Never Used service: Yes Current occupational status: retired Cognitive needs: No Hearing needs: No Vision needs: Yes Questionnaire PHQ-9 Over the last 2 weeks, how often have you been bothered by any of the following problems? 1. Little interest or pleasure in doing things: not at all 2. Feeling down, depressed, or hopeless: several days 3. Trouble falling or staying asleep, or sleeping too much: not at all 4. Feeling tired or having little energy: several days 5. Poor appetite or overeating: not at all 6. Feeling bad about yourself - or that you are a failure or have let yourself or your family down: not at all 7. Trouble concentrating on things, such as reading the newspaper or watching television: not at all 8. Moving or speaking so slowly that other people could have noticed. Or the opposite - being so fidgety or restless that you have been moving around a lot more than usual: not at all 9. Thoughts that you would be better off or of hurting yourself in some way: not at all Total score: 2 Depression Screening Interpretation: Negative Depression Screening Done: Yes 61455 - PHQ-9 Billing: Yes Source: Developed by Drs. Dheeraj Hurley, Raseheda Sosa, Shailesh Puentes and colleagues, with an educational chelly from [employer]. Thrive Questionnaire Date Thrive assessed: 08/13/24 I am a: Patient What is your living situation today?: I have a steady place to live Within the past 12 months, did the food you bought not last and you didn't have the money to get more?: Never true Within the past 12 months, did you worry whether your food would run out before you got money to buy more?: Never true Do you have trouble paying for medicines?: No Do you have trouble getting transportation to medical appointments?: No Do you have trouble paying your heating and electricity bill?: No Do you have trouble taking care of your child, family member or friend?: No Do you have trouble with day-to-day activities such as bathing, preparing meals, shopping, managing finances, etc.?: No Are you currently unemployed and looking for a job?: No Are you interested in more education?: No THRIVE Score: 0 AUDIT C Alcohol Use Questionnaire (AUDIT-C) 1. How often do you have a drink containing alcohol?: Never 3. How often do you have six or more drinks on one occasion?: Never Total Score: 0 JAMES-7 AMB Questionnaire JAMES-7 Date JAMES - 7 assessed: 08/13/24 Feeling nervous, anxious, or on edge: 0 = Not at all Not being able to stop or control worryin = Not at all Worrying too much about different things: 0 = Not at all Trouble relaxin = Not at all Being so restless that it is hard to sit still: 0 = Not at all Becoming easily annoyed or irritable: 0 = Not at all Feeling afraid as if something awful might happen: 0 = Not at all Total JAMES-7 score (0-4 normal; 5-9 mild; 10-14 moderate; 15-21 severe): 0 Source: Developed by Drs. Dheeraj Hurley, Rasheeda Sosa, Shailesh Puentes and colleagues, with an educational chelly from [employer]. JAMES-7 Assessment Billing JAMES-7 Assessment Tool: JAMES-7 Assessment 57761 Review of Systems Const All systems reviewed & are unremarkable except as noted in HPI and below Eyes Reports no additional complaints ENT Reports no additional complaints Card Reports no additional complaints Resp Reports no additional complaints GI Reports no additional complaints Reports no additional complaints Physical exam (Primary Care) Vital Signs: Last Vital Signs Temp 97.9 F 08/13/24 11:55 Pulse 68 08/13/24 11:55 Resp 18 08/13/24 11:55 BP 126/76 08/13/24 11:55 Pulse Ox 98 08/13/24 11:55 Oxygen Delivery Method Room Air 08/13/24 11:55 BMI result Body Mass Index 21.0 Tobacco/Smoking Status: Tobacco use Status Tobacco use date assessed 08/13/24 08/13/24 12:01 Patient Tobacco Use Status Never used Tobacco 08/13/24 12:01 e-Cigarette/Vaping Use Never Used 08/13/24 12:01 PHQ-9: PHQ-9 Score PHQ-9: Total score 2 08/13/24 12:01 Depression Screening Interpretation: Negative Thrive Assessment: Date of Thrive Assessment Date Thrive assessed 08/13/24 08/13/24 12:01 Const General: no acute distress HENMT Head: Yes normal to inspection General nose exam: Normal external nose present Face and sinus: Yes normal facial exam Mouth: Normal oral and palatal mucosa present Eyes General: appearance normal, both eyes and all related structures Neck Neck: Yes no lymphadenopathy and Yes supple Resp Effort & Inspection: normal respiratory effort Auscultation: clear to auscultation bilaterally Cardio Rhythm: regular rhythm Heart sounds: S1 normal heart sound present and S2 normal heart sound present GI Inspection: Yes normal to inspection Palpation (GI): Soft to palpation Percussion: Yes normal to percussion Auscultation: normal bowel sounds Coding Level of Care Code Est Pt Prev Care >65y(96506) Diagnoses Chronic lower back pain M54.50; G89.29 HTN (hypertension) I10 Hyperlipemia E78.5 Annual physical exam Z00.00 Hyperglycemia R73.9 Additional Codes JAMES-7 Assessment Billing - JAMES-7 Assessment Tool: JAMES-7 Assessment 92981 ([id number]) PHQ-9 - 07178 - PHQ-9 Billing: Yes ([id number]) Assessment & Plan Assessment & Plan (1) Chronic lower back pain: Code(s): M54.50 - Low back pain, unspecified; G89.29 - Other chronic pain Category: Medical Plan: Referred to physical therapy (2) HTN (hypertension): Comment: <130/80 Code(s): I10 - Essential (primary) hypertension Category: Medical Plan: Continue lisinopril (3) Hyperlipemia: Code(s): E78.5 - Hyperlipidemia, unspecified Category: Medical Plan: Continue statin (4) Annual physical exam: Code(s): Z00.00 - Encounter for general adult medical examination without abnormal findings Category: Medical Plan: Well-balanced diet regular exercise discussed with the patient. He is up-to-date with colonoscopy (5) Hyperglycemia: Code(s): R73.9 - Hyperglycemia, unspecified Category: Medical Plan: A1c is 5.7, continue ADA diet regular exercise monitor A1c annually Orders: Orders PT Evaluation and Treatment Today G89.29 - Other chronic pain, M54.50 - Low back pain, unspecified Lipid Panel 1 Year E78.5 - Hyperlipidemia, unspecified, I10 - Essential (primary) hypertension, R73.9 - Hyperglycemia, unspecified, Z00.00 - Encounter for general adult medical examination without abnormal findings PSA,Total (Free>4and<10) 1 Year E78.5 - Hyperlipidemia, unspecified, I10 - Essential (primary) hypertension, R73.9 - Hyperglycemia, unspecified, Z00.00 - Encounter for general adult medical examination without abnormal findings UA w Microscopic 1 Year E78.5 - Hyperlipidemia, unspecified, I10 - Essential (primary) hypertension, R73.9 - Hyperglycemia, unspecified, Z00.00 - Encounter for general adult medical examination without abnormal findings Hemoglobin A1c 1 Year R73.9 - Hyperglycemia, unspecified Comprehensive [place]. Panel Fast 1 Year E78.5 - Hyperlipidemia, unspecified, I10 - Essential (primary) hypertension, R73.9 - Hyperglycemia, unspecified, Z00.00 - Encounter for general adult medical examination without abnormal findings Complete Blood Count Auto Diff 1 Year E78.5 - Hyperlipidemia, unspecified, I10 - Essential (primary) hypertension, R73.9 - Hyperglycemia, unspecified, Z00.00 - Encounter for general adult medical examination without abnormal findings Medications: Refilled lisinopril 10 mg PO DAILY 90 tabs 3RF pravastatin 40 mg PO DAILY 90 tabs 3RF pantoprazole 40 mg PO DAILY 90 tabs 3RF
--- OUTSIDE RECORDS SUMMARY | 2024-08-13 14:01 | XMS_ITS | Clinical Summary ---
Author Organization [facility] Address [address] [place] [address] Care Team Providers Care Satellite Instruction Facilitator Name Role Phone Tanesha Brown MD Primary Care Provider [phone] Allergies No known active allergies Medications Medication [...] age to complete this topic Care Teams Satellite Instruction Facilitator Relationship Specialty Start Date End Date Tanesha Brown MD PCP - General Internal Medicine 11/21/17
--- OUTSIDE RECORDS SUMMARY | 2024-08-13 14:01 | XMS_ITS | Clinical Summary ---
Author Organization [facility] Address [id number] [place] [id number] Care Team Providers Care Thread Reeler Name Role Phone Tanesha Brown MD Primary Care Provider [phone] Allergies No known active allergies Medications lisinopriL [...] Recently Relevant to Health Maintenance Care Teams Thread Reeler Relationship Specialty Start Date End Date Tanesha Brown MD [address] [place] [address] PCP - General Internal Medicine 06/13/14
== END 2024-08-13 12:19 | disposition home or self-care (01) ==
LOC: HO.HMCC 11:53
PROVIDERS: PCP Internal Medicine; Visit Provider Internal Medicine
DX: M54.50 Low back pain, unspecified (principal); G89.29 Other chronic pain; I10 Essential (primary) hypertension; E78.5 Hyperlipidemia, unspecified; Z00.00 Encounter for general adult medical examination without abnormal findings; R73.9 Hyperglycemia, unspecified

== ENCOUNTER → 2024-08-13 11:53 | Outpatient (BNVA) | payer MEDICARE, SELFPAY | PROVIDERS: PCP Internal Medicine; Visit Provider Internal Medicine | DX: Z00.00 Encounter for general adult medical examination without abnormal findings (principal); M54.50 Low back pain, unspecified; G89.29 Other chronic pain; I10 Essential (primary) hypertension; E78.5 Hyperlipidemia, unspecified; R73.9 Hyperglycemia, unspecified | CPT/HCPCS: 96127; 99397 ==